=== PATIENT | female | born 1970 ===

== ENCOUNTER 2018-01-08 21:39 | Emergency (ER) | payer MEDICAID, OTHER ==
[2018-01-08 21:39] VITALS: BMI 25.0
[2018-01-08 21:46] VITALS: BP 138/84; PULSE 113; RESP 20; TEMP 98.4; O2SAT 100
--- NOTE | 2018-01-08 22:40 | ED PDOC ---
HPI: Chest Pain Time Seen by Provider: 01/08/18 21:48 Chief Complaint (Nursing): Chest Pain Chief Complaint (Provider): chest pain History Per: Patient Onset/Duration Of Symptoms: Intermittent Episodes (started tonight while at rest , but has had it in the past for a few years) Quality: Tightness, "Pain" Associated Symptoms: Nausea, Other (numbness to hands and feet). denies: Dyspnea, Diaphoresis, Syncope Exacerbating Factors: Deep Breathing Additional Complaint(s): Pt admits to drinking some alcohol tonight. Past Medical History Reviewed: Historical Data, Nursing Documentation, Vital Signs Vital Signs: Last Vital Signs Temp 98.4 F 01/08/18 21:44 Pulse 113 H 01/08/18 21:44 Resp 20 01/08/18 21:44 BP 138/84 01/08/18 21:44 Pulse Ox 100 01/08/18 22:43 - Medical History PMH: Anxiety (on Elavil), Back Problems, Depression, Migraine - Family History Family History: States: Unknown Family Hx - Social History Current smoker - smoking cessation education provided: Yes Alcohol: Occasional Drugs: Denies - Immunization History Hx Tetanus Toxoid Vaccination: No Hx Influenza Vaccination: No Hx Pneumococcal Vaccination: No - Home Medications Home Medications: Ambulatory Orders Medication Instructions Recorded Amitriptyline [Elavil] 50 mg PO DAILY 10/06/17 Ibuprofen [Motrin Tab] 600 mg PO Q6 #20 tab 10/06/17 Methocarbamol [Robaxin] 500 mg PO TID #14 tab 10/06/17 - Allergies Allergies/Adverse Reactions: Allergies Allergy/AdvReac Type Severity Reaction Status Date / Time No Known Allergies Allergy Verified 10/06/17 12:19 Review of Systems ROS Statement: Except As Marked, All Systems Reviewed And Found Negative (and as per HPI) Constitutional: Positive for: Weakness, Malaise Cardiovascular: Positive for: Chest Pain, Light Headedness Respiratory: Positive for: Shortness of Breath, SOB with Exertion Gastrointestinal: Positive for: Abdominal Pain, Constipation (occasional) Physical Exam - Reviewed Nursing Documentation Reviewed: Yes Vital Signs Reviewed: Yes - Physical Exam Appears: Positive for: Non-toxic, In Acute Distress (tearful in the ER) Head Exam: Positive for: ATRAUMATIC, NORMOCEPHALIC Skin: Positive for: Warm, Dry Eye Exam: Positive for: EOMI, PERRL, Conjunctival injection ENT: Negative for: Pharyngeal Erythema, Tonsillar Exudate Neck: Positive for: Painless ROM, Supple Cardiovascular/Chest: Positive for: Regular Rate, Rhythm, Chest Non Tender. Negative for: Murmur Respiratory: Positive for: Normal Breath Sounds. Negative for: Wheezing Gastrointestinal/Abdominal: Positive for: Soft. Negative for: Tenderness Back: Positive for: Normal Inspection Extremity: Positive for: Normal ROM. Negative for: Deformity Lymphatic: Negative for: Adenopathy Neurologic/Psych: Positive for: Oriented (x3), Mood/Affect (normal mood, but depressed affect). Negative for: Motor/Sensory Deficits - ECG O2 Sat by Pulse Oximetry: 100 Medical Decision Making Medical Decision [place] woman with vague mild complaints appearing somewhat depressed and tearful, but otherwise with no remarkable clinical findings. EKG normal. 11p Pt reports feeling better. Refused to have any further evaluation in ER. Eager to be discharged. Disposition - Clinical Impression Clinical Impression: Chest pain - Disposition Referrals: Kylah Dhaliwal MD [Non-Staff] - Disposition: Routine/Home Disposition Time: 23:05 Condition: IMPROVED Instructions: Chest Pain Print Language: MALAYSIAN
--- NOTE | 2018-01-09 10:43 | CARD ---
APPROVED REPORT EKG Measurement Heart [id number] <Conclusion> Normal sinus rhythm
== END 2018-01-08 23:24 | disposition home or self-care (01) ==
LOC: H.ER 21:39
DX: R07.9 Chest pain, unspecified (principal)